=== PATIENT | female | born 1980 | race Two or more races ===

== ENCOUNTER 2016-05-22 18:12 | Emergency (ER) | payer SELFPAY ==
--- NOTE | 2016-05-27 13:30 | ER ---
ADMIT: 05/22/2016 RM/LOC: ER [facility] MR#: [id number] [address] [id number] KIMBERLY CAIN [address] [place] [address] Emergency Room Report SEX: F AGE: 35 : 1980 DATE: 05/22/2016 ADDENDUM: This patient comes to the ER because she was doing box jumps when she jumped on a box that was a few feet up. She slipped and hit her [place]in[place] on the box causing herself to have a large 9 cm V-shaped laceration. The area was infiltrated with bupivacaine with lidocaine. There was no fracture on x- ray. I irrigated it with a liter of normal saline and then placed a total of 13 stainless steel ray with good wound closure. Ray to be removed in 12 days. We will have her follow up with her primary as needed. Please see my T-sheet. KIM Alonzo / Oumar Gagnon MD / teresa JOB #: [id number] CC: Janes Vargas MD, Attending Physician Saira Ramos, Family Physician
== END 2016-05-22 19:35 | disposition home or self-care (01) ==
LOC: ER 18:12
PROC: 0HQLXZZ Repair Left Lower Leg Skin, External Approach (ICD-10-PCS; principal; 2016-05-22)
DX: S81.812A Laceration without foreign body, left lower leg, initial encounter (principal); W18.00XA Striking against unspecified object with subsequent fall, initial encounter; Y92.009 Unspecified place in unspecified non-institutional (private) residence as the place of occurrence of the external cause